=== PATIENT | female | born 1980 | race African-American/Black ===

== ENCOUNTER 2018-10-26 17:50 | Emergency (ER) | payer MEDICAID ==
[~2018-10-26] VITALS: Ht 162.6 cm; Wt 96.6 kg
[2018-10-26 20:25] LABS: Basophils # (auto) 0 uL; Basophils % (auto) 0.3 % (0.0-2.0); Eosinophils # (auto) 0.1 uL; Eosinophils % (auto) 1.4 % (0.0-7.0); Hemoglobin 13.1 g/dL (12.2-16.2); Lymphocytes # (auto) 2.6 uL; Lymphocytes % (auto) 25.1 % (10.0-50.0); Mean Corpuscular Hgb Conc. 33.7 g/dL (32.0-36.0); Mean Corpuscular Volume 83.3 fL (80.0-100.0); Monocytes # (auto) 1.2 uL; Monocytes % (auto) 11.1 % (0.0-12.0); Neutrophils # (auto) 6.5 uL; Neutrophils % (auto) 62.1 % (37.0-80.0); Nucleated Red Blood Cells % 0.1 %; Platelet Count (auto) 300 10^3/uL (140-450); Red Blood Cells 4.69 10^6/uL (4.0-5.20); Red Cell Distribution Width 14.6 % (11.8-14.3); White Blood Cell 10.4 10^3/uL (4.4-10.8)
[2018-10-26 20:34] LABS: Albumin 3.3 g/dL (3.4-5.0); Calcium 9.5 mg/dL (8.5-10.1)
[2018-10-26 20:37] LABS: Urine Amorphous Crystal FEW /hpf (None Seen); Urine Bacteria FEW /hpf (None Seen); Urine Blood 2+ /uL (Negative); Urine Mucus FEW (None Seen); Urine Specific Gravity 1.027 (1.001-1.035); Urine WBC 1 /hpf (0 - 5)
[2018-10-26 20:48] LABS: Bilirubin, Total 0.4 mg/dL (0.2-1.0); Total Protein 8.2 g/dL (6.4-8.2)
[2018-10-27 10:40] VITALS: BP 128/82
== END 2018-10-27 12:19 | disposition home or self-care (01) ==
LOC: ER 17:58
CPT/HCPCS: 36415; 76801; 80053; 81001; 84702; 85025